=== PATIENT | female | born 1960 | race Caucasian/White ===

== ENCOUNTER 2018-11-12 16:22 | Emergency (ER) | payer OTHER, MEDICAID ==
[~2018-11-12] VITALS: Ht 172.7 cm; Wt 98.9 kg
[~2018-11-12 16:22] MED LIST: ASPI-1169 PO; BENA20TA9 PO; BUPR100T4 PO; BUPR150T12 PO; CARI350T27 PO; HYDR-4303 PO; LEVO88TA5 PO; LORA0.5T PO; OXYC10TA49 PO; SITA100T PO
--- NOTE | 2018-11-12 17:00 | NUR ---
PT BROU[facility]HT FROM [facility] FOR LEAKING SUPRAPUBIC CATHETER WILL CONTINUE TO MONITOR PENDING MD ORDERS
[2018-11-12] MEDS ORDERED: GENT40VI IJ (17:04)
[2018-11-12] MEDS ORDERED: SENN-18 PO (17:04)
[2018-11-12] MEDS ORDERED: OXYC-128 PO (17:04)
[2018-11-12] MEDS ORDERED: MYRBETRIQ PO (17:04)
[2018-11-12] MEDS ORDERED: RISP2TAB5 PO (17:04)
[2018-11-12] MEDS ORDERED: TEMA15CA PO (17:04)
[2018-11-12] MEDS ORDERED: ASCO500C18 PO (17:04)
[2018-11-12] MEDS ORDERED: [UNRECOGNIZED DRUG - CODE] PO (17:04)
[2018-11-12] MEDS ORDERED: MIRT15TA PO (17:04)
[2018-11-12] MEDS ORDERED: BENZ1TAB7 PO (17:04)
[2018-11-12] MEDS ORDERED: ESTR0.5T PO (17:04)
[2018-11-12] MEDS ORDERED: CHOL200013 PO (17:04)
[2018-11-12] MEDS ORDERED: MULT1CAP44 PO (17:04)
[2018-11-12] MEDS ORDERED: ERTA1VIA IJ (17:15)
--- NOTE | 2018-11-12 17:29 | NUR ---
PAGED UROLOGIST CLARE ARIAS MD FOR CONSULT
--- NOTE | 2018-11-12 17:31 | NUR ---
DOCTOR ARIAS TRANSFERRED FOR CONSULT TO DOCTOR CHÁVEZ
--- NOTE | 2018-11-12 17:44 | NUR ---
CALLED [facility]AN[facility]O FOR DISCHARGE BACK TO [facility] TRIP #[id number] SPOKE TO CHARLY
--- NOTE | 2018-11-12 18:29 | NUR ---
CATHER NOT CHANGED PER MD CHÁVEZ REDRESSED CALLING FOR TRANSPORTATION
--- NOTE | 2018-11-12 19:15 | NUR ---
received endorsement from DONNIE Rader for LAKES[facility]. Pt in bed. aaox4. nad, breathing even and unlabored. awaiting transport back to her assisted living
[2018-11-12] MEDS ORDERED: oxyCODONE/APAP (5/325 MG) 1 UDTAB TABLET PO ONE (20:00)
[2018-11-12] MEDS ORDERED: oxyCODONE/APAP (5/325 MG) 1 UDTAB TABLET ONE (20:01)
--- NOTE | 2018-11-12 21:36 | NUR ---
dPatient discharged to home in stable condition. Written and verbal after care instructions given. Patient verbalizes understanding of instruction. p/u by ambulanz. report given. pt in stable condition for transport. nad, breathing even and unlabored. aaox4.
[2018-11-12 21:40] VITALS: BP 139/93
== END 2018-11-12 21:41 | disposition home or self-care (01) ==
LOC: ER 16:26
DX: T83.018A Breakdown (mechanical) of other urinary catheter, initial encounter (principal); M79.7 Fibromyalgia; E03.9 Hypothyroidism, unspecified; I10 Essential (primary) hypertension; E11.9 Type 2 diabetes mellitus without complications; Z90.710 Acquired absence of both cervix and uterus; Z90.89 Acquired absence of other organs; Z98.890 Other specified postprocedural states; Z88.1 Allergy status to other antibiotic agents; Z88.9 Allergy status to unspecified drugs, medicaments and biological substances; Z88.8 Allergy status to other drugs, medicaments and biological substances; Z79.82 Long term (current) use of aspirin

== ENCOUNTER 2019-04-23 17:31 | Inpatient (IN) | payer OTHER, MEDICAID ==
[~2019-04-23] VITALS: Ht 172.7 cm; Wt 102.7 kg
[~2019-04-23 17:31] MED LIST changes: +ASCO500C18 PO; -BENA20TA9 PO; +BENZ1TAB7 PO; -BUPR150T12 PO; -CARI350T27 PO; +CHOL200013 PO; +ERTA1VIA IJ; +ESTR0.5T PO; +GENT40VI IJ; -HYDR-4303 PO; -LORA0.5T PO; +MIRT15TA PO; +MULT1CAP44 PO; +MYRBETRIQ PO; +OXYC-128 PO; -OXYC10TA49 PO; +RISP2TAB5 PO; +SENN-18 PO; -SITA100T PO; +TEMA15CA PO; +[UNRECOGNIZED DRUG - CODE] PO
[2019-04-23] MEDS ORDERED: PREG75CA PO (17:48)
[2019-04-23] MEDS ORDERED: TOPI100T38 PO (17:48)
[2019-04-23] MEDS ORDERED: PRAV40TA3 PO (17:48)
[2019-04-23] MEDS ORDERED: OMEP20CA11 PO (17:48)
[2019-04-23] MEDS ORDERED: DOCU250C14 PO (17:48)
[2019-04-23] MEDS ORDERED: TRIA50CA3 PO (17:48)
[2019-04-23] MEDS ORDERED: BUPR200T31 PO (17:48)
[2019-04-23] MEDS ORDERED: CYCL5TAB PO (17:48)
[2019-04-23] MEDS ORDERED: POTA20TA83 PO (17:48)
[2019-04-23] MEDS ORDERED: LORA-259 PO (17:48)
[2019-04-23] MEDS ORDERED: RISP0.2515 PO (17:48)
[2019-04-23] MEDS ORDERED: IBUP-1955 PO (17:48)
[2019-04-23] MEDS ORDERED: LEVO75TA7 PO (17:48)
[2019-04-23] MEDS ORDERED: IV NS 0.9% 1,000 ML BAG IV ONE ×2 (18:30→21:00)
[2019-04-23] MEDS ORDERED: ONDANSETRON HCL/PF 4 MG/2 ML VIAL IVP ONE ×2 (18:30→19:00)
[2019-04-23 18:50] LABS: BASOPHILS % (AUTO) 0.4 % (0.0-2.0); EOSINOPHILS % (AUTO) 1.5 % (0.0-6.0); HEMATOCRIT 35 % (33-45); HEMOGLOBIN 11.6 g/dL (11.5-14.8); LYMPHOCYTES # (AUTO) 1.7 /CMM (0.8-4.8); LYMPHOCYTES % (AUTO) 14.2 % (20.0-44.0); MEAN CORPUSCULAR HGB CONC 33 g/dl (31.0-36.0); MEAN CORPUSCULAR VOLUME 91 fL (82-100); MONOCYTES # (AUTO) 0.8 /CMM (0.1-1.30); MONOCYTES % (AUTO) 6.8 % (2.0-12.0); NEUTROPHILS # (AUTO) 9.1 /CMM (1.8-8.9); NEUTROPHILS % (AUTO) 77.1 % (43.0-81.0); PLATELET COUNT (AUTO) 262 /CMM (150-450); WHITE BLOOD COUNT (AUTO) 11.9 K/uL (4.3-11.0)
[2019-04-23] MEDS ORDERED: ONDANSETRON HCL/PF 4 MG/2 ML VIAL ONE (18:51)
[2019-04-23] MEDS ORDERED: MORPHINE SULFATE INJ 4 MG/ML DISP.SYRIN ONE ×2 (18:52→20:39)
[2019-04-23] MEDS ORDERED: MORPHINE SULFATE INJ 2 MG/ML DISP.SYRIN IV ONE ×2 (19:00→20:30)
--- NOTE | 2019-04-23 19:02 | NUR ---
bib[facility], from [facility], abd pain x 3 days. PT AAOX4, VS. DENIES CP, SOB, DIZZINESS @ THIS TIME. PT SEEN & EVAL BY NATALIIA CAMEJO. MALLIKA CONT TO MONITOR.
[2019-04-23 19:05] LABS: ALBUMIN 3.5 g/dL (3.4-5.0); BILIRUBIN,DIRECT 0.1 mg/dL (0.0-0.2); BILIRUBIN,TOTAL 0.3 mg/dL (0.2-1.0); CALCIUM, SERUM 9.4 mg/dL (8.5-10.1); TOTAL PROTEIN, SERUM 7.8 g/dL (6.4-8.2)
[2019-04-23 19:09] LABS: POTASSIUM 2.8 mmol/L (3.5-5.1)
[2019-04-23 19:44] LABS: APPEARANCE,URINE Clear (CLEAR); BILIRUBIN,URINE Negative (NEGATIVE); BLOOD, URINE Small Ery/uL (NEGATIVE); COLOR,URINE Yellow (YELLOW); KETONES,URINE Negative (NEGATIVE); LEUKOCYTE ESTERASE ,URINE Small (NEGATIVE); NITRITE, URINE Negative (NEGATIVE); PH,URINE 8.5 (5.0-8.0); PROTEIN,URINE Trace mg/dl (NEGATIVE); UGLUCOSE Negative (NEGATIVE); UROBILINOGEN,URINE 0.2 EU/dL (0.2)
[2019-04-23 20:22] LABS: BACTERIA,URINE Few /HPF (None Seen); RBC,URINE 0-2 /HPF (0-2); SQUAMOUS EPITHELIAL CELL,UR Rare /HPF (None Seen); TRIPLE PHOSPHATE CRYSTAL,UR Many /HPF (None Seen); WBC,URINE 0-2 /HPF (0-3)
--- NOTE | 2019-04-23 20:55 | NUR ---
[facility] PAGED
[2019-04-23] MEDS ORDERED: POTASSIUM CL. PREMIX PERIPHER. 50 ML IV SCH (21:00)
[2019-04-23] MEDS ORDERED: POTASSIUM CHLORIDE 20 MEQ TAB.PRT.SR PO ONE ×2 (21:00→21:02)
[2019-04-23] MEDS ORDERED: POTASSIUM CL. PREMIX PERIPHER. 50 ML ONE (21:02)
--- NOTE | 2019-04-23 21:10 | NUR ---
RN SUP was called, waiting for tele bed
--- NOTE | 2019-04-23 22:21 | NUR ---
REPORT GIVEN TO DONNIE GERONIMO FOR LAKESHA.
[2019-04-23] MEDS ORDERED: HYDROCODONE/APAP 5/325MG 1 EACH TABLET PO PRN (22:30)
[2019-04-23] MEDS ORDERED: MAG HYDROX/AL HYDROX/SIMETH 30 ML UDC PO PRN (22:30)
[2019-04-23] MEDS ORDERED: ACETAMINOPHEN 325 MG TABLET PO PRN (22:30)
[2019-04-23] MEDS ORDERED: MAGNESIUM HYDROXIDE 30 ML UDC PO PRN (22:30)
[2019-04-23] MEDS ORDERED: ZOLPIDEM TARTRATE 5 MG TABLET PO PRN (22:30)
[2019-04-23] MEDS ORDERED: Z GUARD REMEDY 2 OZ OINT TP PRN (22:30)
[2019-04-23 22:45] VITALS: BP 134/75
--- NOTE | 2019-04-23 23:00 | NUR ---
MS PUMP AND STILL OPERATOR NOTES RECEIVED PATIENT FROM ER VIA GURNEY ACCOMPANIED BY ER STAFF, ALERT AND ORIENTED X 3. VERBALLY RESPONSIVE AND ABLE TO FOLLOW DIRECTIONS. BREATHING REGULAR AND UNLABORED ON ROOM AIR. RIGHT AC G20 IV LINE INTACT AND PATENT, INFUSING WELL WITH NO BLEEDING OR S/S OF INFILTRATION NOTED. BODY ASSESSMENT DONE, SEEN WITH ABDOMINAL SURGICAL SCAR AND RIGHT LEG BRUISE. PHOTOS TAKEN, ATTACHED TO CHART. SUPRAPUBIC CATHETER INTACT AND PATENT WITH MODERATE CLEAR YELLOW URINE NOTED ON URINARY BAG. BELONGINGS CHECKED AND ACCOUNTED BY THE PATIENT. ADVISED ON NOTHING BY MOUTH. CALL LIGHT IN REACH. BED LOW AND LOCKED ON SEMI FOWLERS POSITION. WILL CONTINUE TO MONITOR.
[2019-04-23 23:50] VITALS: BP 134/75
[2019-04-23] MEDS: MORPHINE SULFATE INJ 2 MG/ML DISP.SYRIN IV PRN (23:59)
[2019-04-23] MEDS: IV D5/0.45 NACL 1,000 ML IV PRN (23:59)
--- NOTE | 2019-04-24 | NUR ---
MS RN NOTES COMPLAINED OF 8/10 LEFT LOWER ABDOMINAL PAIN, MORPHINE 2MG GIVEN VIA IV PUSH. NON-PHARMACOLOGICAL INTERVENTIONS PROVIDED. VITAL SIGNS WNL. WILL CONTINUE TO MONITOR.
[2019-04-24] MEDS: MORPHINE SULFATE INJ 2 MG/ML DISP.SYRIN IV PRN ×3 (04:02→12:18)
--- NOTE | 2019-04-24 06:15 | NUR ---
MS RN CLOSING NOTES PATIENT IN BED ALERT AND ORIENTED X 3. VERBALLY RESPONSIVE AND ABLE TO FOLLOW DIRECTIONS. BREATHING REGULAR AND UNLABORED ON ROOM AIR. RIGHT AC G20 IV LINE INTACT AND PATENT, INFUSING WELL WITH NO BLEEDING OR S/S OF INFILTRATION NOTED. SUPRAPUBIC CATHETER INTACT AND PATENT WITH 350CC CLEAR YELLOW URINE OUTPUT. MAINTAINED ON NPO. CALL LIGHT IN REACH. BED LOW AND LOCKED ON SEMI FOWLERS POSITION. WILL ENDORSE TO MORNING SHIFT FOR LAKESHA.
[2019-04-24 06:55] LABS: CALCIUM, SERUM 7.7 mg/dL (8.5-10.1); CREATININE 0.8 mg/dL (0.6-1.3); MAGNESIUM 1.9 mg/dL (1.8-2.4); POTASSIUM 3.6 mmol/L (3.5-5.1)
[2019-04-24 06:59] LABS: BASOPHILS % (AUTO) 0.3 % (0.0-2.0); EOSINOPHILS % (AUTO) 2.5 % (0.0-6.0); HEMATOCRIT 30 % (33-45); HEMOGLOBIN 10.1 g/dL (11.5-14.8); LYMPHOCYTES # (AUTO) 1.7 /CMM (0.8-4.8); LYMPHOCYTES % (AUTO) 18.8 % (20.0-44.0); MEAN CORPUSCULAR HGB CONC 34 g/dl (31.0-36.0); MEAN CORPUSCULAR VOLUME 92 fL (82-100); MONOCYTES # (AUTO) 0.7 /CMM (0.1-1.30); MONOCYTES % (AUTO) 7.9 % (2.0-12.0); NEUTROPHILS # (AUTO) 6.3 /CMM (1.8-8.9); NEUTROPHILS % (AUTO) 70.5 % (43.0-81.0); PLATELET COUNT (AUTO) 199 /CMM (150-450); RED BLOOD CELL COUNT(AUTO) 3.27 MIL/uL (4.0-5.2)
[2019-04-24] MEDS: PANTOPRAZOLE 40 MG TABLET.DR PO SCH (07:30)
--- NOTE | 2019-04-24 07:38 | NUR ---
M/S OPENING NOTES PATIENT IS CURRENTLY RESTING IN BED A/O x4. NO SIGNS OF RESPIRATORY DISTRESS AND NO CURRENT COMPLAINTS OF PAIN, JUST SLIGHT UNCOMFORT. IV LOCATED ON RIGHT AC G#20 PATIENT AND NO SIGNS OF INFECTION OR INFILTRATION. SUPRAUBIC CATHETER IN PLACE, CLEAR AND YELLOW OUTPUT. NPO MAINTAINED. BED IN LOWEST POSITION, LOCKED, AND CALL LIGHT WITHIN REACH.
[2019-04-24 08:00] VITALS: BP 101/53
[2019-04-24] MEDS: ONDANSETRON HCL/PF 4 MG/2 ML VIAL IVP PRN ×2 (08:14→20:40)
[2019-04-24] MEDS: IV D5/0.45 NACL 1,000 ML IV PRN (08:29)
--- NOTE | 2019-04-24 09:27 | NUR ---
M/S RN NOTES 2 MG MORPHINE WASTED DUE TO ACCIDENTAL SPILL, RECEIVED ANOTHER MORPHINE TO ADMINISTER TO PATIENT.
--- NOTE | 2019-04-24 10:33 | NUR ---
M/S RN NOTES SEEN BY OLEG LAWRENCE. CONTINUE NPO AND PAIN MEDICATIONS NEEDED. GI CONSULT ORDERED MD NOTIFIED.
[2019-04-24] MEDS: LEVOFLOXACIN 250 MG /D5W 50 ML 250 MG in PREMIX 1 EA IV SCH (11:41)
[2019-04-24] MEDS: POTASSIUM PHOSPHATE MM 7.5 MMOL in IV D5W 100 ML IV SCH ×2 (13:50→16:56)
--- NOTE | 2019-04-24 14:00 | NUR ---
M/S RN NOTES POTASSIUM PHOSPHATE ADMINISTERED LATE DUE TO PREVIOUS IV INFUSING. IV MED 1/2 CURRENTLY INFUSING.
[2019-04-24] MEDS: PHENAZOPYRIDINE HCL 200 MG TABLET PO PRN (15:39)
[2019-04-24 16:00] VITALS: BP 113/67
--- NOTE | 2019-04-24 16:20 | NUR ---
M/S RN NOTES HOME MEDS RECONCILED BY OLEG LAWRENCE.WILL ADMINISTER WHEN VERIFIED BY PHARMACY.
[2019-04-24] MEDS: ASCORBIC ACID 500 MG TABLET PO SCH (16:56)
[2019-04-24] MEDS: BENZTROPINE MESYLATE (1 MG) 1 MG TABLET PO SCH (16:56)
--- NOTE | 2019-04-24 18:42 | NUR ---
M/S RN NOTES PATIENT IS CURRENTLY RESTING IN BED, A/O x3. NO SIGNS OF DISTRESS. IV LOCATED ON R AC G#20. PATIENT HAS SUPRAPUBIC CATHETER, NO CLOTS NOTED. ALL MEDICATIONS ADMINISTERED ORDERED. PATIENT REMAINING ON NPO EXCEPT MEDS. SAFETY PRECAUTIONS IN PLACE WITH BED IN LOWEST POSITION, BREAKS ON, AND CALL LIGHT WITHIN REACH. WILL ENDORSE TO ON COMING NURSE ABOUT LAKESHA.
--- NOTE | 2019-04-24 19:20 | NUR ---
MS RN OPENING NOTES Received patient A/O x4, awake on bed. On RA, no respiratory distress noted at this time. With suprapubic catheter in place with clear yellow urine noted. On pain management, awaiting for due meds at this time. Kept on bed clean, dry and comfortable.
--- NOTE | 2019-04-24 19:21 | NUR ---
M/S PT PRIMARY PHYSICIAN DR. AL [phone]
[2019-04-24 20:00] VITALS: BP 138/66
[2019-04-24] MEDS: PREGABALIN 25 MG CAPSULE PO SCH (20:40)
[2019-04-24] MEDS: CYCLOBENZAPRINE 10 MG TABLET PO SCH (20:40)
[2019-04-24] MEDS: IBUPROFEN 600 MG TABLET PO SCH (20:40)
[2019-04-24] MEDS: LORAZEPAM 1 MG TABLET PO SCH (20:40)
[2019-04-24] MEDS: DOCUSATE SODIUM 250 MG CAPSULE PO SCH (20:40)
[2019-04-24] MEDS ORDERED: METHENAMINE MANDELATE 1 GM TABLET PO SCH ×2 (21:00)
[2019-04-24] MEDS: SENNOSIDES 8.6 MG TABLET PO SCH (22:06)
[2019-04-24] MEDS: MIRTAZAPINE 15 MG TABLET PO SCH (22:06)
[2019-04-24] MEDS: risperiDONE 1 MG TABLET PO SCH (22:07)
[2019-04-24] MEDS: TEMAZEPAM 15 MG CAPSULE PO SCH (22:07)
[2019-04-24] MEDS: TOPIRAMATE 100 MG TABLET PO SCH (22:07)
[2019-04-25] MEDS: IV D5/0.45 NACL 1,000 ML IV PRN ×2 (00:41→10:39)
[2019-04-25 06:32] LABS: BASOPHILS % (AUTO) 0.3 % (0.0-2.0); EOSINOPHILS % (AUTO) 2.8 % (0.0-6.0); HEMATOCRIT 31 % (33-45); HEMOGLOBIN 10.3 g/dL (11.5-14.8); LYMPHOCYTES # (AUTO) 1.4 /CMM (0.8-4.8); LYMPHOCYTES % (AUTO) 16.5 % (20.0-44.0); MEAN CORPUSCULAR HGB CONC 33 g/dl (31.0-36.0); MEAN CORPUSCULAR VOLUME 91 fL (82-100); MONOCYTES # (AUTO) 0.6 /CMM (0.1-1.30); MONOCYTES % (AUTO) 7.4 % (2.0-12.0); NEUTROPHILS # (AUTO) 6.3 /CMM (1.8-8.9); PLATELET COUNT (AUTO) 229 /CMM (150-450); RED BLOOD CELL COUNT(AUTO) 3.38 MIL/uL (4.0-5.2); WHITE BLOOD COUNT (AUTO) 8.6 K/uL (4.3-11.0)
[2019-04-25] MEDS: LEVOTHYROXINE SODIUM 75 MCG TABLET PO SCH (06:57)
[2019-04-25] MEDS: PANTOPRAZOLE 40 MG TABLET.DR PO SCH ×2 (06:58→09:46)
[2019-04-25 07:10] LABS: ALBUMIN 2.5 g/dL (3.4-5.0); BILIRUBIN,TOTAL 0.2 mg/dL (0.2-1.0); CALCIUM, SERUM 8.1 mg/dL (8.5-10.1); CREATININE 0.7 mg/dL (0.6-1.3); PHOSPHORUS 2.3 mg/dL (2.5-4.9); POTASSIUM 3.7 mmol/L (3.5-5.1)
--- NOTE | 2019-04-25 07:15 | NUR ---
MS RN CLOSING NOTES No new complaints made by the patient. All due meds given as ordered. On fall and aspiration precautions. Medicated for pain, noted effective. Endorsed to the next shift.
--- NOTE | 2019-04-25 07:25 | NUR ---
ms rn received on bed, awake,alert,oriented x4,not in any form of distress, respirations even and unlabored,no sob noted, lungs are clear,abdomen soft,positive bowel sound, suprapubic catheter intact w/ dressing slightly soak w/ urine, wright cath leaking from the port entry area, will monitor patient.
[2019-04-25 08:00] VITALS: BP 134/81
[2019-04-25] MEDS: oxyCODONE/APAP (5/325 MG) 1 UDTAB TABLET PO PRN ×3 (08:10→21:19)
[2019-04-25] MEDS: PHENAZOPYRIDINE HCL 200 MG TABLET PO PRN ×2 (08:11→20:35)
[2019-04-25] MEDS ORDERED: MYRBETRIQ 50 MG PO SCH (09:00)
--- NOTE | 2019-04-25 09:00 | NUR ---
ms maxwell breakfast served,due meds given, tolerated well.
[2019-04-25] MEDS: PREGABALIN 25 MG CAPSULE PO SCH ×2 (09:46→21:18)
[2019-04-25] MEDS: LORAZEPAM 1 MG TABLET PO SCH ×2 (09:47→21:49)
[2019-04-25] MEDS: CYCLOBENZAPRINE 10 MG TABLET PO SCH ×2 (09:47→21:18)
[2019-04-25] MEDS: BENZTROPINE MESYLATE (1 MG) 1 MG TABLET PO SCH ×3 (09:47→17:41)
[2019-04-25] MEDS: IBUPROFEN 600 MG TABLET PO SCH ×2 (09:49→21:19)
[2019-04-25] MEDS: DOCUSATE SODIUM 250 MG CAPSULE PO SCH ×2 (09:49→21:19)
[2019-04-25] MEDS: ATORVASTATIN 10 MG TABLET PO SCH (09:49)
[2019-04-25] MEDS: ASCORBIC ACID 500 MG TABLET PO SCH ×2 (09:49→17:41)
[2019-04-25] MEDS: MULTIVIT W/MINERALS 1 TAB TABLET PO SCH (09:49)
[2019-04-25] MEDS: CHOLECALCIFEROL 1,000 UNIT TABLET (VIT D3) PO SCH (09:49)
[2019-04-25] MEDS: POTASSIUM CHLORIDE 20 MEQ TAB.PRT.SR PO SCH (09:49)
[2019-04-25] MEDS: ESTRADIOL 1 MG TABLET PO SCH (09:50)
[2019-04-25] MEDS: LEVOFLOXACIN 250 MG /D5W 50 ML 250 MG in PREMIX 1 EA IV SCH (10:39)
--- NOTE | 2019-04-25 11:00 | NUR ---
ms rn was seen by w/ orders made and carried out. was aware that 2 meds not available w/ rx.
[2019-04-25] MEDS ORDERED: POTASSIUM PHOSPHATE MM 7.5 MMOL in IV D5W 100 ML IV SCH (12:00)
[2019-04-25] MEDS ORDERED: LACTULOSE 10 G/15 ML UDC (PYXIS) PO PRN (12:00)
[2019-04-25] MEDS: MORPHINE SULFATE INJ 2 MG/ML DISP.SYRIN IV PRN ×2 (12:19→17:51)
[2019-04-25] MEDS: DULOXETINE HCL 30 MG CAPSULE.DR PO SCH (12:22)
[2019-04-25 16:00] VITALS: BP 114/62
--- NOTE | 2019-04-25 18:52 | NUR ---
ms rn regularly getting pain meds, and dressing change q 3 hours.
--- NOTE | 2019-04-25 19:10 | NUR ---
MS RN NOTES RECEIVED PT IN BED AWAKE AND ABLE TO MAKE NEEDS KNOWN. PT A/O X3. RESPIRATIONS EVEN AND UNLABORED WITH NO S/S OF ACUTE DISTRESS OR SOB NOTED. NO COMPLAINTS OF PAIN AT THIS TIME. PT WITH MAYKEL MIDLINE PATENT NAD INTACT INFUSING D5 1/2NS @125CC/HR. PATIENT HAS SUPRAPUBIC CATHETER, NO CLOTS NOTED. SAFETY MEASURES INLACE WITH BED IN LOWEST LOCKED POSITION WITH SIDE RAILS UP X2. CALL LIGHT WITHIN REACH. WILL CONTINUE TO MONITOR.
[2019-04-25 20:00] VITALS: BP 121/71
[2019-04-25] MEDS: HEPARIN SODIUM, PORCINE 5000 UNITS/1 ML VIAL SQ SCH (21:20)
[2019-04-25] MEDS: TOPIRAMATE 100 MG TABLET PO SCH (22:48)
[2019-04-25] MEDS: MIRTAZAPINE 15 MG TABLET PO SCH (22:48)
[2019-04-25] MEDS: risperiDONE 1 MG TABLET PO SCH (22:48)
[2019-04-25] MEDS: TEMAZEPAM 15 MG CAPSULE PO SCH (22:48)
[2019-04-25] MEDS: SENNOSIDES 8.6 MG TABLET PO SCH (22:48)
[2019-04-26] MEDS: IV D5/0.45 NACL 1,000 ML IV PRN ×2 (00:41→09:11)
[2019-04-26] MEDS: oxyCODONE/APAP (5/325 MG) 1 UDTAB TABLET PO PRN ×2 (05:51→15:50)
[2019-04-26] MEDS: PHENAZOPYRIDINE HCL 200 MG TABLET PO PRN ×2 (05:51→15:49)
[2019-04-26 07:19] LABS: BASOPHILS % (AUTO) 0.3 % (0.0-2.0); EOSINOPHILS % (AUTO) 2.4 % (0.0-6.0); HEMATOCRIT 31 % (33-45); HEMOGLOBIN 10.2 g/dL (11.5-14.8); LYMPHOCYTES # (AUTO) 1.5 /CMM (0.8-4.8); LYMPHOCYTES % (AUTO) 17.7 % (20.0-44.0); MEAN CORPUSCULAR HGB CONC 33 g/dl (31.0-36.0); MEAN CORPUSCULAR VOLUME 91 fL (82-100); MONOCYTES # (AUTO) 0.5 /CMM (0.1-1.30); NEUTROPHILS # (AUTO) 6.3 /CMM (1.8-8.9); NEUTROPHILS % (AUTO) 73.6 % (43.0-81.0); PLATELET COUNT (AUTO) 251 /CMM (150-450); RED BLOOD CELL COUNT(AUTO) 3.38 MIL/uL (4.0-5.2); WHITE BLOOD COUNT (AUTO) 8.6 K/uL (4.3-11.0)
--- NOTE | 2019-04-26 07:37 | NUR ---
MS RN NOTES PT IN BED AWAKE AND ABLE TO MAKE NEEDS KNOWN. PT A/O X3. RESPIRATIONS EVEN AND UNLABORED WITH NO S/S OF ACUTE DISTRESS OR SOB NOTED THROUGHOUT SHIFT. NO COMPLAINTS OF PAIN AT THIS TIME. PT WITH MAYKEL MIDLINE PATENT NAD INTACT INFUSING D5 1/2NS @125CC/HR. PATIENT HAS SUPRAPUBIC CATHETER, NO CLOTS NOTED. SAFETY MEASURES INLACE WITH BED IN LOWEST LOCKED POSITION WITH SIDE RAILS UP X2. CALL LIGHT WITHIN REACH. WILL ENDORSE TO ONCOMING NURSE FOR LAKESHA.
[2019-04-26 07:44] LABS: CALCIUM, SERUM 8.2 mg/dL (8.5-10.1); CREATININE 0.7 mg/dL (0.6-1.3); POTASSIUM 3.5 mmol/L (3.5-5.1)
--- NOTE | 2019-04-26 07:58 | NUR ---
MS RN NOTES PATIENT IN BED RESTING NO SOB OR ACUTE DISTRESS NOTED. PERIPHERAL IV INTACT PATENT. BED IN LOW LOCKED POSITION. CALL LIGHT WITHIN REACH. WILL CONTINUE TO MONITOR.
[2019-04-26 08:00] VITALS: BP 112/63
[2019-04-26] MEDS: PANTOPRAZOLE 40 MG TABLET.DR PO SCH (08:28)
[2019-04-26] MEDS: CYCLOBENZAPRINE 10 MG TABLET PO SCH (08:28)
[2019-04-26] MEDS: DULOXETINE HCL 30 MG CAPSULE.DR PO SCH (08:28)
[2019-04-26] MEDS: CHOLECALCIFEROL 1,000 UNIT TABLET (VIT D3) PO SCH (08:28)
[2019-04-26] MEDS: DOCUSATE SODIUM 250 MG CAPSULE PO SCH (08:28)
[2019-04-26] MEDS: BENZTROPINE MESYLATE (1 MG) 1 MG TABLET PO SCH ×2 (08:28→13:18)
[2019-04-26] MEDS: PREGABALIN 25 MG CAPSULE PO SCH (08:28)
[2019-04-26] MEDS: ASCORBIC ACID 500 MG TABLET PO SCH (08:28)
[2019-04-26] MEDS: POTASSIUM CHLORIDE 20 MEQ TAB.PRT.SR PO SCH (08:28)
[2019-04-26] MEDS: LEVOTHYROXINE SODIUM 75 MCG TABLET PO SCH (08:28)
[2019-04-26] MEDS: ATORVASTATIN 10 MG TABLET PO SCH (08:29)
[2019-04-26] MEDS: IBUPROFEN 600 MG TABLET PO SCH (08:29)
[2019-04-26] MEDS: MULTIVIT W/MINERALS 1 TAB TABLET PO SCH (08:29)
[2019-04-26] MEDS: LORAZEPAM 1 MG TABLET PO SCH (08:29)
[2019-04-26] MEDS: HEPARIN SODIUM, PORCINE 5000 UNITS/1 ML VIAL SQ SCH (08:30)
[2019-04-26] MEDS: ESTRADIOL 1 MG TABLET PO SCH (08:31)
[2019-04-26] MEDS: MORPHINE SULFATE INJ 2 MG/ML DISP.SYRIN IV PRN (10:02)
[2019-04-26] MEDS: LEVOFLOXACIN 250 MG /D5W 50 ML 250 MG in PREMIX 1 EA IV SCH (11:08)
[2019-04-26] MEDS ORDERED: DULO30CA2 PO (11:59)
--- NOTE | 2019-04-26 16:45 | NUR ---
MS RN NOTES PATIENT DISCHARGED TO [facility]. PATIENT ALERT, ORIENTED X4. PATIENT IN STABLE CONDITION. ALL BELONGINGS ACCOUNTED FOR. BELONGINGS LIST SIGNED. DISCHARGE TEACHING PROVIDED. VERBALIZED UNDERSENSING. DISCHARGE PROTOCOL FOLLOWED. PATIENTS SUPRAPUBIC CATH INTACT, NOTED LEAKING. PATIENT STATES SHE HAS SURGERY SCHEDULED OUTPATIENT. PATIENT TRANSFERRED VIA AMBULANCE WITH EMT. MIDLINE REMOVED WITH MINIMAL BLEEDING. ID BAND REMOVED. SUPRAPUBIC DRESSING CHANGED. DISCHARGE PICTURES TAKEN.
[2019-04-27] MEDS ORDERED: LEVOFLOXACIN (250MG) 250 MG TABLET PO SCH (09:00)
== END 2019-04-26 16:45 | DRG 391 ==
LOC: ER 17:31 → MED 21:33
PROVIDERS: ADMIT Student in an Organized Health Care Education/Training Program; ATTEND Hospitalist
PROC: 05H533Z Insertion of Infusion Device into Right Subclavian Vein, Percutaneous Approach (ICD-10-PCS; principal; 2019-04-25)
DX: K59.03 Drug induced constipation (principal); E43 Unspecified severe protein-calorie malnutrition; E87.1 Hypo-osmolality and hyponatremia; D68.59 Other primary thrombophilia; Z86.73 Personal history of transient ischemic attack (TIA), and cerebral infarction without residual deficits; E87.6 Hypokalemia; E11.9 Type 2 diabetes mellitus without complications; M60.9 Myositis, unspecified; E03.9 Hypothyroidism, unspecified; T40.605A Adverse effect of unspecified narcotics, initial encounter; M79.7 Fibromyalgia; G89.4 Chronic pain syndrome; I10 Essential (primary) hypertension; Z93.59 Other cystostomy status; D72.829 Elevated white blood cell count, unspecified; R53.1 Weakness; I89.0 Lymphedema, not elsewhere classified; K76.89 Other specified diseases of liver; E88.09 Other disorders of plasma-protein metabolism, not elsewhere classified; F32.9 Major depressive disorder, single episode, unspecified; N20.0 Calculus of kidney; Y92.89 Other specified places as the place of occurrence of the external cause; N31.9 Neuromuscular dysfunction of bladder, unspecified; J45.909 Unspecified asthma, uncomplicated; Z68.34 Body mass index [BMI] 34.0-34.9, adult
CPT/HCPCS: 36415; 71045-TC; 80048-TC; 80053-TC; 80061-TC; 80076-TC; 81000-TC; 83605-TC; 83690-TC; 83735-TC; 84100-TC; 84484-TC; 85025-TC; 85730-TC; 87040-TC; 87081-TC; 97112-TC; 97116-TC; 97530-TC; A4216; A6253; A6403; G0378; J1644; J1956; J2270; J2405; J3480; J3490; J7030; J7060